=== PATIENT | female | born 1990 | race African-American/Black ===

== ENCOUNTER 2020-03-18 09:27 | Emergency (ER) | payer SELFPAY ==
[2020-03-18 09:38] VITALS: BP 124/83
[2020-03-18] MEDS ORDERED: KETOROLAC TROMETHAMINE 60 MG/2 ML SDV IM ONE (11:00)
--- NOTE | 2020-03-18 11:04 | ER Document Report ---
HPI - HPI Time Seen by Provider: 03/18/20 10:53 Pain Level: 3 Context: Patient is a 29-year-old female presents emergency department with a chief complaint of left low back pain that radiates down her left leg. Patient is able to walk. States that a week ago her pain started. She was started on cyclobenzaprine by her primary care provider. He states that she continues to have pain. States that when she did start the pain, she was moving furniture. Denies any history of IV drug use, cancer, loss of bladder or bowel function, saddle anesthesia, or any other symptoms. - ROS Systems Reviewed and Negative: Yes All other systems reviewed and negative - CONSTITUTIONAL Constitutional: DENIES: Fever, Chills - CARDIOVASCULAR Cardiovascular: DENIES: Chest pain - RESPIRATORY Respiratory: DENIES: Trouble Breathing, Coughing - REPRODUCTIVE Reproductive: DENIES: : - MUSCULOSKELETAL Musculoskeletal: REPORTS: Extremity pain - Left hip, Back Pain - Low back - DERM Skin Color: Normal Skin Problems: None Past Medical History - General Information source: Patient - Social History Smoking Status: Unknown if Ever Smoked Family History: Reviewed & Not Pertinent Vertical Provider Document - CONSTITUTIONAL Agree With Documented VS: Yes Exam Limitations: No Limitations General Appearance: No Apparent Distress - HEENT HEENT: Atraumatic, Normocephalic, PERRLA - NECK Neck: Normal Inspection - RESPIRATORY Respiratory: Breath Sounds Normal, No Respiratory Distress - CARDIOVASCULAR Cardiovascular: Regular Rate, Regular Rhythm Pulses: Normal: Radial - GI/ABDOMEN Gastrointestinal: Abdomen Soft, Abdomen Non-Tender - MUSCULOSKELETAL/EXTREMETIES Musculoskeletal/Extremeties: FROM, Tender - Left hip, No Edema. negative: Eccymosis - NEURO Level of Consciousness: Awake, Alert, Appropriate Motor/Sensory: No Motor Deficit, No Sensory Deficit - DERM Integumentary: Warm, Dry, No Rash Course - Re-evaluation Re-evalutation: 03/18/20 11:06 Differential diagnosis for back pain includes muscle spasm, muscle strain, slipped disc cauda equina syndrome, vertebral fracture, vertebral tumor, epidura l abscess, pyelonephritis, or AAA. Based on history and exam, the most likely etiology of the patient's back pain is sciatic nerve pain. Emergent MRI is not indicated at this time because the patient does not have new weakness, or cauda equina syndrome. Patient does not have bladder or bowel dysfunction. Patient does not have history of IV drug use, therefore, I do not suspect an epidural abscess. Patient does not have recent weight loss or night sweats, and does not have a known history of cancer. We will proceed with a dose of Toradol and she will be sent home with Robaxin. She will follow-up with her primary care provider. Follow-up precautions were given. Verbal discharge instructions were given to the patient. They verbalized understanding. They are stable for discharge. - Vital Signs Vital signs: Temp Pulse Resp BP Pulse Ox 97.8 F 90 22 H 124/83 95 03/18/20 09:37 03/18/20 09:37 03/18/20 09:37 03/18/20 09:37 03/18/20 09:37 - Laboratory Results Critical Laboratory Results Reviewed: No Critical Results - Radiology Results Critical Radiology Results Reviewed: No Critical Results Discharge - Discharge Clinical Impression: Sciatica Qualifiers: Laterality: left Qualified Code(s): M54.32 - Sciatica, left side Condition: Stable Disposition: HOME, SELF-CARE Additional Instructions: You were seen today in the emergency department for back pain. Your back pain is most consistent with sciatic nerve pain. You may take the naproxen later this evening. Take the Robaxin as prescribed. You may also buy [id number] Aspercreme with lidocaine and apply to the area per box instructions. If you develop a fever greater than 100.4 F, lose bowel or bladder function, are unable to walk, or have any symptoms that are worrisome to you, please return to the emergency department.. Prescriptions: Methocarbamol [Robaxin 500 mg Tablet] 1,000 mg PO BID PRN #20 tablet PRN Reason:
== END 2020-03-18 11:15 | disposition home or self-care (01) ==
LOC: ER 09:27
DX: M54.42 Lumbago with sciatica, left side (principal)
CPT/HCPCS: 99284; 96372; J1885